=== PATIENT | male | born 1980 | race American Indian/Alaskan Native ===

== ENCOUNTER 2018-05-16 12:22 | Emergency (ER) | payer OTHER ==
[2018-05-16 12:55] VITALS: BP 121/70
[2018-05-16] MEDS ORDERED: ASPIRIN PO ONE (13:20)
[2018-05-16 13:34] LABS: Basophils % (Auto) 0.7 % (0.0-1.8); Eosinophils % (Auto) 0.9 % (0.0-4.3); Hematocrit 44.1 % (35.5-45.6); Hemoglobin 15.3 gm/dl (11.8-15.2); Lymphocytes % (Auto) 41.3 % (13.4-35.0); Mean Corpuscular HGB Conc 35 % (32-34); Mean Corpuscular Hemoglobin 32 pg (28-32); Mean Corpuscular Volume 92 fl (84-94); Monocytes # (Auto) 0.4 K/mm3 (0.0-0.8); Monocytes % (Auto) 8.6 % (0.0-7.3); Platelet Count 232 K/mm3 (140-440); Red Blood Count 4.78 M/mm3 (3.65-5.03); Red Cell Distribution Width 13.4 % (13.2-15.2)
[2018-05-16 14:03] LABS: BUN/Creatinine Ratio 16; Blood Urea Nitrogen 11 mg/dL (9-20); Calcium 9.1 mg/dL (8.4-10.2); Hemolysis Index 33
--- NOTE | 2018-05-16 14:10 | Emergency Department Report ---
ED Chest Pain HPI - General Chief Complaint: Chest Pain Stated Complaint: CHEST PAIN Time Seen by Provider: 05/16/18 13:58 Source: patient Mode of arrival: Ambulatory Limitations: No Limitations - History of Present Illness Initial Comments: 37-year-old male presents to ED with complaints of chest pain. Patient reports substernal, sharp chest pain this morning while vomiting. Patient states he thinks he may have had food poisoning and woke up with vomiting and diarrhea. Patient states the chest pain was with retching. No chest pain at this time. Vomiting and diarrhea also resolved. Pt denies shortness of breath, leg pain, leg swelling. She reports recent visit at the doctor shows mildly elevated cholesterol, however, patient was not placed on any cholesterol medication. Patient denies tobacco use MD Complaint: chest pain -: This morning Onset: other (with emesis) Pain Location: substernal Pain Radiation: none Severity: mild Quality: sharp Consistency: intermittent Improves With: nothing Worsens With: other (vomiting) re: nausea, vomting. denies: diaphoresis, dyspnea Other Symptoms: denies: fever, leg swelling - Related Data Previous Rx's Medication Instructions Recorded Last Taken Type Naproxen [Naprosyn] 500 mg PO BID PRN #20 tablet 05/16/18 Unknown Rx Ondansetron [Zofran Odt] 4 mg PO Q8HR PRN #20 tab.rapdis 05/16/18 Unknown Rx Allergies Allergy/AdvReac Type Severity Reaction Status Date / Time No Known Allergies Allergy Unverified 05/16/18 12:55 Heart Score - HEART Score History: Slightly suspicious EKG: Normal Age: < 45 Risk factors: 1-2 risk factors Troponin: < normal limit HEART Score: 1 - Critical Actions Critical Actions: 0-3 pts:0.9-1.7%risk of adverse cardiac event.Candidate for discharge ED Review of Systems ROS: Stated complaint: CHEST PAIN Other details as noted in HPI Comment: All other systems reviewed and negative Constitutional: denies: fever Respiratory: denies: shortness of breath Cardiovascular: chest pain Gastrointestinal: nausea, vomiting, diarrhea. denies: abdominal pain Musculoskeletal: other (denies leg painand swelling) ED Past Medical Hx - Past Medical History Previous Medical History?: Yes Additional medical history: High cholesterol - Surgical History Past Surgical History?: No - Social History Smoking Status: Current Every Day Smoker Substance Use Type: None - Medications Home Medications: Home Medications Medication Instructions Recorded Confirmed Last Taken Type Naproxen [Naprosyn] 500 mg PO BID PRN #20 tablet 05/16/18 Unknown Rx Ondansetron [Zofran Odt] 4 mg PO Q8HR PRN #20 tab.rapdis 05/16/18 Unknown Rx ED Physical Exam - General Limitations: No Limitations General appearance: alert, in no apparent distress - Head Head exam: Present: atraumatic, normocephalic - Eye Eye exam: Present: normal appearance - ENT ENT exam: Present: mucous membranes moist - Neck Neck exam: Present: normal inspection - Respiratory Respiratory exam: Present: normal lung sounds bilaterally, chest wall tenderness. Absent: respiratory distress - Cardiovascular Cardiovascular Exam: Present: regular rate, normal rhythm - GI/Abdominal GI/Abdominal exam: Present: soft. Absent: distended, tenderness - Extremities Exam Extremities exam: Present: normal inspection. Absent: pedal edema, calf tenderness - Neurological Exam Neurological exam: Present: alert, oriented X3 - Psychiatric Psychiatric exam: Present: normal affect, normal mood - Skin Skin exam: Present: warm, dry, intact, normal color ED Course Vital Signs 05/16/18 12:52 Temperature 98.6 F Pulse Rate 64 Respiratory 18 Rate Blood Pressure 121/70 O2 Sat by Pulse 100 Oximetry ED Medical Decision Making - Lab Data Result diagrams: 05/16/18 13:24 05/16/18 13:24 - EKG Data -: EKG Interpreted by [facility] EKG shows normal: sinus rhythm, axis, intervals, QRS complexes, ST-T waves Rate: normal - EKG Data Interpretation: normal EKG - Radiology Data Radiology results: report reviewed, image reviewed - Medical Decision Making 37 yo male with chest pain while vomiting. Likely gastroenteritis. No evidence of free air on chest x-ray. Likely not esophageal rupture. Patient has chest wall tenderness on exam. EKG and troponin normal with discharge at this time. Advised PCP follow-up. Return precautions given. - Differential Diagnosis GERD, chest wall pain, ACS Critical care attestation.: If time is entered above; I have spent that time in minutes in the direct care of this critically ill patient, excluding procedure time. ED Disposition Clinical Impression: Chest wall pain Disposition: DC-01 TO HOME OR SELFCARE Is pt being admited?: No Condition: Stable Instructions: Chest Pain (ED), Costochondritis (ED) Prescriptions: Naproxen [Naprosyn] 500 mg PO BID PRN #20 tablet PRN Reason: pain Ondansetron [Zofran Odt] 4 mg PO Q8HR PRN #20 tab.rapdis PRN Reason: Vomiting Referrals: PRIMARY CARE,MD [Primary Care Provider] - 3-5 Days Time of Disposition: 14:48
--- NOTE | 2018-05-16 15:00 | XRay Report ---
ROUTINE CHEST, TWO VIEWS: HISTORY: chest pain. The trachea, heart, mediastinal contour, lung padilla are unremarkable. There is marked expansion of the left sixth rib posteriorly and laterally. The etiology of this is unclear but I suspect this could represent fibrous dysplasia. I suppose a large aneurysmal bone cyst could be considered. A neoplastic process is thought less likely but cannot be entirely excluded. No obvious bony destruction or fracture. The remaining bony structures are within normal limits. IMPRESSION: Abnormal left sixth rib as described above. I favor fibrous dysplasia. This could be further evaluated with CT or MRI of the with contrast if needed.
== END 2018-05-16 15:12 | disposition home or self-care (01) ==
LOC: ED 12:22
DX: R07.89 Other chest pain (principal); R11.10 Vomiting, unspecified; R19.7 Diarrhea, unspecified; E78.00 Pure hypercholesterolemia, unspecified; F17.200 Nicotine dependence, unspecified, uncomplicated
CPT/HCPCS: 36415; 71046; 80048; 84484; 85025; 93005; 93010